=== PATIENT | male | born 1955 | race Caucasian/White ===

== ENCOUNTER 2018-10-23 10:47 | Inpatient (IN) | payer MEDICARE, OTHER ==
[2018-10-23] MEDS ORDERED: ASPIRIN 81 MG TABLET, CHEWABLE PO ONE (10:58)
[2018-10-23 11:13] LABS: ABSOLUTE BASOPHILS # (AUTO) 0.1 10^3/uL (0.0-0.2); ABSOLUTE EOSINOPHILS # (AUTO) 0.2 10^3/uL (0.0-0.6); ABSOLUTE LYMPHOCYTES (AUTO) 2.3 10^3/uL (0.5-4.7); ABSOLUTE MONOCYTES (AUTO) 1.6 10^3/uL (0.1-1.4); ABSOLUTE NEUT (AUTO) 7.1 10^3/uL (1.7-8.2); BASOPHILS % (AUTO) 0.8 % (0-2); EOSINOPHILS % (AUTO) 1.9 % (0-6); HEMATOCRIT 42.9 % (37.9-51.0); HEMOGLOBIN 14.8 g/dL (13.5-17.0); LYMPHOCYTES % (AUTO) 20.1 % (13-45); MEAN CORPUSCULAR HEMOGLOBIN 32.5 pg (27.0-33.4); MEAN CORPUSCULAR HGB CONC 34.6 g/dL (32.0-36.0); MEAN CORPUSCULAR VOLUME 94 fl (80-97); PLATELET COUNT 513 10^3/uL (150-450); RED BLOOD COUNT 4.57 10^6/uL (4.35-5.55); RED CELL DISTRIBUTION WIDTH 12.4 % (11.5-14.0); SEGMENTED NEUTROPHILS % (AUTO) 63.2 % (42-78); TOTAL CELLS COUNTED % (AUTO) 100 %; WHITE BLOOD COUNT 11.2 10^3/uL (4.0-10.5)
[2018-10-23] MEDS ORDERED: DILTIAZEM HCL/D5W 125 MG/125 ML RTUINJ IV PRN ×2 (11:20→18:29)
[2018-10-23 11:31] LABS: ALANINE AMINOTRANSFERASE 28 U/L (21-72); ALBUMIN 4.3 g/dL (3.5-5.0); ALKALINE PHOSPHATASE 59 U/L (38-126); ANION GAP 10 (5-19); ASPARTATE AMINO TRANSFERASE 19 U/L (17-59); BILIRUBIN,DIRECT 0.3 mg/dL (0.0-0.4); BILIRUBIN,TOTAL 0.5 mg/dL (0.2-1.3); BLOOD UREA NITROGEN 15 mg/dL (7-20); CALCIUM 9.6 mg/dL (8.4-10.2); CARBON DIOXIDE 26 mmol/L (22-30); CHLORIDE 102 mmol/L (98-107); CREATINE KINASE 53 U/L (55-170); GLUCOSE 117 mg/dL (75-110); POTASSIUM 4.7 mmol/L (3.6-5.0); SODIUM 137.7 mmol/L (137-145); TOTAL PROTEIN 7.1 g/dL (6.3-8.2)
--- NOTE | 2018-10-23 11:36 | RADIOLOGY REPORT (SQ) ---
EXAM DESCRIPTION: CHEST SINGLE VIEW COMPLETED DATE/TIME: 10/23/2018 11:24 am REASON FOR STUDY: HR over 170 COMPARISON: None. EXAM PARAMETERS: NUMBER OF VIEWS: One view. TECHNIQUE: Single frontal radiographic view of the chest acquired. RADIATION DOSE: NA LIMITATIONS: None. FINDINGS: LUNGS AND PLEURA: No opacities, masses or pneumothorax. No pleural effusion. MEDIASTINUM AND HILAR STRUCTURES: Widening of the right paratracheal stripe, likely vascular. No dis crete mass. HEART AND VASCULAR STRUCTURES: Normal cardiac silhouette size. No evidence of failure. BONES: No acute findings. HARDWARE: None in the chest. OTHER: Hiatal hernia. IMPRESSION: Hiatal hernia. No evidence of acute intrathoracic process. TECHNICAL DOCUMENTATION: JOB ID: [id number] [email or web address]- All Rights Reserved Reading location - IP/workstation name: [email or web address]
[2018-10-23 11:42] LABS: CREATINE KINASE MB 0.68 ng/mL (<4.55)
[2018-10-23 11:44] LABS: TROPONIN I < 0.012 ng/mL
--- NOTE | 2018-10-23 11:59 | ER Document Report ---
ED Cardiac - General Chief Complaint: Irregular Pulse Stated Complaint: HEART ISSUES Time Seen by Provider: 10/23/18 11:07 Primary Care Provider: NAYAN BELTRAN MD [Primary Care Provider] - Follow up as needed TRAVEL OUTSIDE OF THE [place] IN LAST 30 DAYS: No - HPI Notes: Patient is a 63-year-old male that presents to the emergency department for chief complaint of irregular heart rhythm. Patient was being seen by his primary care doctor for sinus congestion. He had just completed a course of Levaquin and was still having some sinus pressure. Patient was found to have a heart rate in the high 170s and was transferred by EMS to the emergency room. EMS gave patient 25 mg IV Cardizem and 6 mg IV adenosine prior to arrival. Patient denies feeling any chest pain, shortness of breath, palpitations. He denies history of atrial fib or flutter in the past. He denies any near syncope or lightheadedness. He does state he was sweating last night which resolved shortly after waking up. Past Medical History: Hypertension, hyperlipidemia, COPD Past Surgical History: Negative Social History: Daily tobacco. Denies drugs and alcohol Family History: Reviewed and noncontributory for presenting illness Allergies: Reviewed, see documented allergy list. REVIEW OF SYSTEMS: CONSTITUTIONAL : No fever No chills No diaphoresis No recent illness EENT: No vision changes congestion No sore throat CARDIOVASCULAR: No chest pain No palpitations RESPIRATORY: No shortness of breath No cough No difficulty breathing GASTROINTESTINAL: No abdominal pain No nausea No vomiting No diarrhea GENITOURINARY: No dysuria No hematuria No difficulty urinating MUSCULOSKELETAL: No back pain No leg pain No arm pain SKIN: No rashes No lesions LYMPHATIC: No swollen, enlarged glands. NEUROLOGICAL: No lightheadedness No headache No weakness No paresthesias PSYCHIATRIC: No anxiety No depression PHYSICAL EXAMINATION: Vital signs reviewed, nursing noted reviewed. GENERAL: Well-appearing, well-nourished and in no acute distress. HEAD: Atraumatic, normocephalic. EYES: Eyes appear normal, extraocular movements intact, sclera anicteric, con junctiva are normal. ENT: Nasal mucosal edema, nares patent, oropharynx clear without exudates. Mo ist mucous membranes. NECK: Normal range of motion, supple without lymphadenopathy LUNGS: Breath sounds clear to auscultation bilaterally and equal. No wheezes rales or rhonchi. HEART: Tachycardic and irregularly irregular rhythm without murmurs ABDOMEN: Soft, nontender, normoactive bowel sounds. No rebound, guarding, or rigidity. No masses appreciated. EXTREMITIES: Nontender, good range of motion, no pitting or edema. NEUROLOGICAL: No focal neurological deficits. Moves all extremities spontaneously Motor and sensory grossly intact on exam. PSYCH: Normal mood, normal affect. SKIN: Warm, Dry, normal turgor, no rashes or lesions noted on exposed skin - Related Data Allergies/Adverse Reactions: No Known Allergies Allergy (Verified 10/23/18 11:00) Past Medical History - Social History Smoking Status: Current Every Day Smoker Frequency of alcohol use: None Drug Abuse: None Family History: Reviewed & Not Pertinent Patient has suicidal ideation: No Patient has homicidal ideation: No - Past Medical History Cardiac Medical History: Reports: Hx Hypercholesterolemia, Hx Hypertension Pulmonary Medical History: Reports: Hx COPD Renal/ Medical History: Denies: Hx Peritoneal Dialysis Physical Exam - Vital signs Vitals: Pulse Ox 99 10/23/18 10:56 Course - Re-evaluation Re-evalutation: 10/23/18 12:06 Vitals reviewed. Nursing notes reviewed. Patient initially presented rate controlled in atrial flutter. His heart rate shortly became tachycardic again and he was placed on Cardizem infusion for further rate control. Patient is not having any chest pain and his troponin is negative. The remainder of his workup is unremarkable including no pulmonary vascular congestion. The atrial flutter is new for him and he is requiring IV infusion for rate control. He will be admitted to the hospital for further cardiac monitoring and evaluation. Patient in agreement with this plan. He is a patient of Dr. Ames and after talking to his office I am informed that he is no longer admitting his patients. Case discussed with Dr. Arias who accepts admission. Laboratory 10/23/18 10/23/18 10/23/18 10:56 10:56 10:56 WBC 11.2 H RBC 4.57 Hgb 14.8 Hct 42.9 MCV 94 MCH 32.5 MCHC 34.6 RDW 12.4 Plt Count 513 H Seg Neutrophils % 63.2 Lymphocytes % 20.1 Monocytes % 14.0 H Eosinophils % 1.9 Basophils % 0.8 Absolute Neutrophils 7.1 Absolute Lymphocytes 2.3 Absolute Monocytes 1.6 H Absolute Eosinophils 0.2 Absolute Basophils 0.1 Sodium 137.7 Potassium 4.7 Chloride 102 Carbon Dioxide 26 Anion Gap 10 BUN 15 Creatinine 0.97 Est GFR ( Amer) > 60 Est GFR (Non-Af Amer) > 60 Glucose 117 H Calcium 9.6 Total Bilirubin 0.5 Direct Bilirubin 0.3 Neonat Total Bilirubin Not Reportable Neonat Direct Bilirubin Not Reportable Neonat Indirect Bili Not Reportable AST 19 ALT 28 Alkaline Phosphatase 59 Creatine Kinase 53 L CK-MB (CK-2) 0.68 Troponin I < 0.012 Total Protein 7.1 Albumin 4.3 Chest X-Ray 10/23/18 10:58 IMPRESSION: Hiatal hernia. No evidence of acute intrathoracic process. - Vital Signs Vital signs: Temp Pulse Resp BP Pulse Ox 98.0 F 103 H 24 H 116/88 H 99 10/23/18 11:04 10/23/18 11:04 10/23/18 11:33 10/23/18 11:33 10/23/18 11:33 - Laboratory Result Diagrams: 10/23/18 10:56 10/23/18 10:56 Laboratory results interpreted by me: 10/23/18 10/23/18 10:56 10:56 WBC 11.2 H Plt Count 513 H Monocytes % 14.0 H Absolute Monocytes 1.6 H Glucose 117 H Creatine Kinase 53 L - EKG Interpretation by Me Additional EKG results interpreted by me: 10/23/18 12:07 Interpreted by myself 1053: Atrial fibrillation, rate 86, no STEMI, QTC 402 Critical Care Note - Critical Care Note Total time excluding time spent on procedures (mins): 35 Comments: 35 Minutes of critical care time spent in direct contact evaluating and reevaluating the patient, treating symptoms, reviewing labs and studies and speaking with family and consultants excluding any procedures. Potential for cardiovascular decompensation Discharge - Discharge Clinical Impression: Atrial flutter with rapid ventricular response Condition: Stable Disposition: ADMITTED INPATIENT Admitting Provider: Hospitalist Unit Admitted: IMCU Referrals: NAYAN BELTRAN MD [Primary Care Provider] - Follow up as needed
[2018-10-23] MEDS ORDERED: APIXABAN 5 MG TABLET PO ONE ×2 (12:35→13:30)
[2018-10-23 14:03] LABS: FREE T4 (FREE THYROXINE) 1.55 ng/dL (0.78-2.19)
[2018-10-23 14:55] LABS: THYROID STIMULATING HORMONE 1.93 uIU/mL (0.47-4.68)
--- NOTE | 2018-10-23 17:45 | PDOC H&P ---
History of Present Illness Admission Date/PCP: 10/23/18 12:25 LENKA STOKES History of Present Illness: ZEB RODRIGUEZ is a 63 year old male with no prior cardiac history, history of hypertension, hyperlipidemia, and smoking half a pack a day, who presented to an urgent care today due to sinus problems. Apparently he is got pretty bad allergies and has a lot of trouble with his sinuses and has been taking [id number] cold medication and has been using an inhaler he managed to get his hands on for the past week. He denied any palpitations, chest pain, or shortness of breath. He is not had any dizziness. He went to the urgent care for ongoing sinus trouble and when he got there apparently his heart rate was in the 170s and so he was sent to the ER. Someone gave him adenosine and it did not convert him and he got some Cardizem and was started on a drip this brought his heart rate down into the 110s to the 140s. He is never had an issue like this before. Past Medical History Cardiac Medical History: Reports: Hyperlipidema, Hypertension Pulmonary Medical History: Reports: Chronic Obstructive Pulmonary Disease (COPD) Social History Smoking Status: Current Every Day Smoker Family History Family History: Reviewed & Not Pertinent Parental Family History Reviewed: Yes - Noncontributory Children Family History Reviewed: Yes - Noncontributory Sibling(s) Family History Reviewed.: Yes - Noncontributory Medication/Allergy Home Medications: Albuterol Sulfate [Ventolin Hfa 8 gm Mdi (1 Mdi/ER Disp)] 2 puff IN Q6HP PRN 10/23/18 Aspirin [Aspirin 325 mg Tablet] 325 mg PO DAILY 10/23/18 Cholecalciferol (Vitamin D3) [Vitamin D3] 2,000 unit PO DAILY 10/23/18 Fenofibrate Nanocrystallized [Tricor 48 mg Tablet] 48 mg PO DAILY 10/23/18 Ibuprofen 200 mg PO TIDP PRN 10/23/18 Loratadine [Allergy Relief] 10 mg PO DAILY 10/23/18 Multivitamin [Multivitamins] 1 each PO DAILY 10/23/18 Simvastatin [Zocor 40 mg Tablet] 40 mg PO DAILY 10/23/18 Telmisartan/Hydrochlorothiazid [Telmisartan-Hctz 80-12.5 mg Tb] 1 tab PO DAILY 10/23/18 Allergies/Adverse Reactions: No Known Allergies Allergy (Verified 10/23/18 11:00) Review of Systems All systems: reviewed and no additional remarkable complaints except as stated - 10 point review of systems was conducted with the patient and was negative except as noted above Physical Exam Vital Signs: Temp Pulse Resp BP Pulse Ox 98.0 F 103 H 19 126/81 H 96 10/23/18 11:04 10/23/18 11:04 10/23/18 16:31 10/23/18 16:31 10/23/18 16:31 Intake & Output 10/22/18 10/23/18 10/24/18 06:59 06:59 06:59 Intake Total 53 Output Total 500 Balance -447 Weight 86.183 kg General appearance: PRESENT: no acute distress, cooperative Head exam: PRESENT: atraumatic, normocephalic Eye exam: PRESENT: EOMI, PERRLA. ABSENT: conjunctival injection, nystagmus, scleral icterus Ear exam: PRESENT: normal external ear exam Mouth exam: PRESENT: moist, neck supple Teeth exam: PRESENT: poor dentation Throat exam: ABSENT: post pharyngeal erythema Neck exam: PRESENT: full ROM. ABSENT: carotid bruit, JVD, lymphadenopathy, meningismus, tenderness, thyromegaly Respiratory exam: PRESENT: clear to auscultation maci, symmetrical, unlabored. ABSENT: accessory muscle use, chest wall tenderness, crackles, prolonged expiratory phas, rales, rhonchi, tachypnea, wheezes Cardiovascular exam: PRESENT: irregular rhythm, tachycardia Vascular exam: PRESENT: normal capillary refill GI/Abdominal exam: PRESENT: normal bowel sounds, soft. ABSENT: distended, guarding, rebound, tenderness Extremities exam: ABSENT: clubbing, pedal edema Musculoskeletal exam: PRESENT: ambulatory, normal inspection. ABSENT: deformity Neurological exam: PRESENT: alert, awake, oriented to person, oriented to place, oriented to time, oriented to situation, CN II-XII grossly intact, normal gait. ABSENT: motor sensory deficit Psychiatric exam: PRESENT: appropriate affect, normal mood Skin exam: PRESENT: dry, warm Results Laboratory Results: 10/23/18 10:56 10/23/18 10:56 10/23/18 10/23/18 10/23/18 10:56 10:56 10:56 WBC 11.2 H RBC 4.57 Hgb 14.8 Hct 42.9 MCV 94 MCH 32.5 MCHC 34.6 RDW 12.4 Plt Count 513 H Seg Neutrophils % 63.2 Lymphocytes % 20.1 Monocytes % 14.0 H Eosinophils % 1.9 Basophils % 0.8 Absolute Neutrophils 7.1 Absolute Lymphocytes 2.3 Absolute Monocytes 1.6 H Absolute Eosinophils 0.2 Absolute Basophils 0.1 Sodium 137.7 Potassium 4.7 Chloride 102 Carbon Dioxide 26 Anion Gap 10 BUN 15 Creatinine 0.97 Est GFR ( Amer) > 60 Est GFR (Non-Af Amer) > 60 Glucose 117 H Calcium 9.6 Total Bilirubin 0.5 AST 19 ALT 28 Alkaline Phosphatase 59 Total Protein 7.1 Albumin 4.3 TSH 1.93 Free T4 1.55 10/23/18 10/23/18 10/23/18 10:56 10:56 15:01 Creatine Kinase 53 L CK-MB (CK-2) 0.68 Troponin I < 0.012 < 0.012 Impressions: Chest X-Ray 10/23/18 10:58 IMPRESSION: Hiatal hernia. No evidence of acute intrathoracic process. Assessment & Plan - Diagnosis (1) Atrial flutter with rapid ventricular response Is this a current diagnosis for this admission?: Yes Plan: He is been started on a Cardizem drip. Once we get his heart rate under control we will transition to oral agents and start anticoagulation. We will trend his troponins. We will likely get a cardiac workup as well. - Time Time Spent: 50 to 70 Minutes
[2018-10-23] MEDS: APIXABAN 5 MG TABLET PO SCH (18:21)
[2018-10-23] MEDS ORDERED: DILTIAZEM HCL/D5W 125 MG/125 ML RTUINJ IV ONE (22:53)
[2018-10-24 03:48] LABS: HEMATOCRIT 40.4 % (37.9-51.0); HEMOGLOBIN 14.3 g/dL (13.5-17.0); MEAN CORPUSCULAR HEMOGLOBIN 32.7 pg (27.0-33.4); MEAN CORPUSCULAR HGB CONC 35.4 g/dL (32.0-36.0); MEAN CORPUSCULAR VOLUME 92 fl (80-97); PLATELET COUNT 507 10^3/uL (150-450); RED BLOOD COUNT 4.38 10^6/uL (4.35-5.55); RED CELL DISTRIBUTION WIDTH 12.2 % (11.5-14.0); WHITE BLOOD COUNT 13.6 10^3/uL (4.0-10.5)
[2018-10-24 04:13] LABS: ANION GAP 10 (5-19); BLOOD UREA NITROGEN 11 mg/dL (7-20); CALCIUM 9.1 mg/dL (8.4-10.2); CARBON DIOXIDE 24 mmol/L (22-30); CHLORIDE 102 mmol/L (98-107); CHOLESTEROL 122.53 mg/dL (0-200); GLUCOSE 115 mg/dL (75-110); PHOSPHORUS 4.4 mg/dL (2.5-4.5); SODIUM 135.7 mmol/L (137-145); TRIGLYCERIDES 134 mg/dL (<150)
[2018-10-24 04:26] LABS: DIRECT LDL 87 mg/dL (<100)
--- NOTE | 2018-10-24 08:02 | EKG REPORT ---
SEVERITY:- NORMAL ECG - SINUS RHYTHM : Confirmed by: Moriah Cuellar MD 24-Oct-2018 08:01:10
--- NOTE | 2018-10-24 08:02 | EKG REPORT ---
SEVERITY:- NORMAL ECG - SINUS RHYTHM : Confirmed by: Moriah Cuellar MD 24-Oct-2018 08:01:06
--- NOTE | 2018-10-24 08:03 | EKG REPORT ---
SEVERITY:- DEFECTIVE ECG - ATRIAL FIBRILLATION PROBABLY VERSUS ARTIFACT VENTRICULAR BIGEMINY LAD, CONSIDER LEFT ANTERIOR FASCICULAR BLOCK CONSIDER POSTERIOR INFARCT BORDERLINE T ABNORMALITIES, INFERIOR LEADS : Confirmed by: Moriah Cuellar MD 24-Oct-2018 08:03:06
[2018-10-24] MEDS: ASPIRIN 325 MG TABLET PO SCH (09:58)
[2018-10-24] MEDS: SIMVASTATIN 40 MG TABLET PO SCH (09:58)
[2018-10-24] MEDS: FENOFIBRATE NANOCRYSTALLIZED 48 MG TABLET PO SCH (09:58)
[2018-10-24] MEDS: MULTIVITAMIN TABLET PO SCH (09:59)
[2018-10-24] MEDS: LOSARTAN POTASSIUM 50 MG TABLET PO SCH (10:00)
[2018-10-24] MEDS: APIXABAN 5 MG TABLET PO SCH ×2 (10:00→17:36)
[2018-10-24] MEDS ORDERED: (PENDING PHARMACY ID) (Telmisartan/Hydrochlorothiazid [Telmisartan-Hctz 80-12.5 Mg Tb] 1 T PO SCH (10:00)
[2018-10-24] MEDS: HYDROCHLOROTHIAZIDE 12.5 MG TABLET PO SCH (10:00)
[2018-10-24] MEDS ORDERED: DILTIAZEM HCL 180 MG CAPSULE.CR PO ONE (11:30)
--- NOTE | 2018-10-24 15:56 | PDOC PROGRESS REPORT ---
Subjective Progress Note for:: 10/24/18 Subjective:: No adverse events overnight. No new complaints. No palpitations, chest pain, or shortness of breath. He converted to a sinus rhythm at some point overnight. Reason For Visit: ATRIAL FLUTTER WITH RAPID VENTRICULAR RESPONSE Physical Exam Vital Signs: Temp Pulse Resp BP Pulse Ox 98.4 F 71 16 95/49 L 94 10/24/18 10:58 10/24/18 13:00 10/24/18 10:58 10/24/18 13:00 10/24/18 10:58 Intake & Output 10/23/18 10/24/18 10/25/18 06:59 06:59 06:59 Intake Total 125 125 Output Total 500 Balance -375 125 Weight 85.9 kg General appearance: PRESENT: no acute distress, cooperative, disheveled Respiratory exam: PRESENT: clear to auscultation maci, symmetrical, unlabored. ABSENT: accessory muscle use, crackles, prolonged expiratory phas, rhonchi, tachypnea, wheezes Cardiovascular exam: PRESENT: RRR, +S1, +S2 Pulses: PRESENT: normal carotid pulses Vascular exam: PRESENT: normal capillary refill GI/Abdominal exam: PRESENT: normal bowel sounds, soft. ABSENT: distended, guarding, rebound, tenderness Extremities exam: ABSENT: clubbing, pedal edema Musculoskeletal exam: PRESENT: ambulatory, normal inspection. ABSENT: deformity Neurological exam: PRESENT: alert, awake, oriented to person, oriented to place, oriented to time, oriented to situation Psychiatric exam: PRESENT: appropriate affect, normal mood Skin exam: PRESENT: dry, warm Results Laboratory Results: 10/24/18 03:12 10/24/18 03:12 10/24/18 10/24/18 03:12 03:12 WBC 13.6 H RBC 4.38 Hgb 14.3 Hct 40.4 MCV 92 MCH 32.7 MCHC 35.4 RDW 12.2 Plt Count 507 H Sodium 135.7 L Potassium 5.0 Chloride 102 Carbon Dioxide 24 Anion Gap 10 BUN 11 Creatinine 0.78 Est GFR ( Amer) > 60 Est GFR (Non-Af Amer) > 60 Glucose 115 H Calcium 9.1 Phosphorus 4.4 Magnesium 1.9 Triglycerides 134 Cholesterol 122.53 LDL Cholesterol Direct 87 VLDL Cholesterol 27.0 HDL Cholesterol 24 L 10/23/18 10/23/18 10/23/18 10:56 10:56 15:01 Creatine Kinase 53 L CK-MB (CK-2) 0.68 Troponin I < 0.012 < 0.012 10/23/18 10/24/18 21:14 03:12 Creatine Kinase CK-MB (CK-2) Troponin I < 0.012 < 0.012 Impressions: Chest X-Ray 10/23/18 10:58 IMPRESSION: Hiatal hernia. No evidence of acute intrathoracic process. Assessment & Plan - Diagnosis (1) Atrial flutter with rapid ventricular response Is this a current diagnosis for this admission?: Yes Plan: He is now converted to a sinus rhythm. He is anticoagulated. We will switch him over to oral Cardizem. His troponins have been negative. We will probably have him follow-up with cardiology as an outpatient to see if further workup is indicated. - Time Time Spent with patient: 25-34 minutes
--- NOTE | 2018-10-24 22:33 | XCELERA REPORT ---
[address] [address] Transthoracic Echocardiogram Report Name: ZEB RODRIGUEZ Age: 63 yrs Gender: Male : 1955 Patient Status: Inpatient Patient Location: [address] [place], [place] [id number] Study Date: 10/24/2018 03:40 PM Height: 67 in Weight: 189 lb BSA: 2.0 m2 Procedure: A two-dimensional transthoracic echocardiogram with color flow and Doppler was performed. Study Quality: Fair. Reason For Study: new onset atrial fibrillation History: new onset atrial fibrillation. Ordering Physician: HAMZAH WEI Performed By: Rubin Mccain Interpretation Summary Patient now in Sinus Rhythm. The left ventricle is normal in size. There is normal left ventricular wall thickness. LV EF is > than 60% Left ventricular systolic function is normal. Doppler measurements suggest impaired left ventricular relaxation, which is associated with grade I/IV or mild diastolic dysfunction The left ventricular wall motion is normal. There is no thrombus. The right ventricle is normal in size and function. The right atrium is normal. The left atrium is mildly dilated. There is no evidence of mitral valve prolapse. There is no vegetation seen on the mitral valve. There is mild mitral annular calcification. There is no mitral valve stenosis. There is a trace amount of mitral regurgitation There is no aortic valvular vegetation. There is no aortic valve stenosis There is no LVOT obstruction. No aortic regurgitation is present. There is no tricuspid stenosis. There is a trace to mild amount of tricuspid regurgitation There is mild pulmonary hypertension by echo RVSP is 41 mm of Hg , with RA mean of 10. There is no pulmonic valvular stenosis. There is a trace amount of pulmonic regurgitation The aortic root is normal size. The inferior vena cava was not visualized There is no pericardial effusion. Patient now in Sinus Rhythm. MMode/2D Measurements & Calculations RVDd: 3.8 cm LVIDd: 4.1 cm FS: 33.4 % LA dimension: 4.3 cm IVSd: 0.89 cm LVIDs: 2.7 cm EDV(Teich): 72.6 ml LVPWd: 0.95 cm ESV(Teich): 27.1 ml EF(Teich): 62.7 % Doppler Measurements & Calculations MV E max arley: MV P1/2t max arley: Ao V2 max: LV V1 max P.0 cm/sec 104.2 cm/sec 179.2 cm/sec 5.8 mmHg MV A max arley: MV P1/2t: 98.0 msec Ao max PG: LV V1 max: 77.0 cm/sec MVA(P1/2t): 2.2 cm2 12.8 mmHg 120.9 cm/sec MV E/A: 0.96 MV dec slope: 311.6 cm/sec2 MV dec time: 0.19 sec PA V2 max: PI end-d arley: TR max arley: MV P1/2t-pr_phl: 111.1 cm/sec 115.4 cm/sec 279.6 cm/sec 98.0 msec PA max PG: TR max P.9 mmHg 31.3 mmHg Left Ventricle The left ventricle is normal in size. There is normal left ventricular wall thickness. LV EF is > than 60%. Left ventricular systolic function is normal. Doppler measurements suggest impaired left ventricular relaxation, which is associated with grade I/IV or mild diastolic dysfunction. The left ventricular wall motion is normal. There is no thrombus. Right Ventricle The right ventricle is normal in size and function. Atria The right atrium is normal. The left atrium is mildly dilated. Mitral Valve There is mild mitral annular calcification. There is no evidence of mitral valve prolapse. There is no vegetation seen on the mitral valve. There is no mitral valve stenosis. There is a trace amount of mitral regurgitation. Aortic Valve There is no aortic valvular vegetation. There is no aortic valve stenosis. There is no LVOT obstruction. No aortic regurgitation is present. Tricuspid Valve There is no tricuspid stenosis. There is a trace to mild amount of tricuspid regurgitation. There is mild pulmonary hypertension by echo. RVSP is 41 mm of Hg , with RA mean of 10. Pulmonic Valve There is no pulmonic valvular stenosis. There is a trace amount of pulmonic regurgitation. Great Vessels The aortic root is normal size. The inferior vena cava was not visualized. Effusions There is no pericardial effusion. : HAMZAH WEI > Moriah Cuellar
[2018-10-25 05:20] LABS: HEMATOCRIT 39.8 % (37.9-51.0); HEMOGLOBIN 13.8 g/dL (13.5-17.0); MEAN CORPUSCULAR HEMOGLOBIN 32.3 pg (27.0-33.4); MEAN CORPUSCULAR HGB CONC 34.8 g/dL (32.0-36.0); MEAN CORPUSCULAR VOLUME 93 fl (80-97); PLATELET COUNT 456 10^3/uL (150-450); RED BLOOD COUNT 4.28 10^6/uL (4.35-5.55); RED CELL DISTRIBUTION WIDTH 12.5 % (11.5-14.0); WHITE BLOOD COUNT 12.8 10^3/uL (4.0-10.5)
[2018-10-25 05:42] LABS: ANION GAP 9 (5-19); BLOOD UREA NITROGEN 15 mg/dL (7-20); CARBON DIOXIDE 24 mmol/L (22-30); CHLORIDE 101 mmol/L (98-107); GLUCOSE 102 mg/dL (75-110); POTASSIUM 4.6 mmol/L (3.6-5.0); SODIUM 134.1 mmol/L (137-145)
[2018-10-25] MEDS: LOSARTAN POTASSIUM 50 MG TABLET PO SCH (09:18)
[2018-10-25] MEDS: ASPIRIN 325 MG TABLET PO SCH (09:18)
[2018-10-25] MEDS: HYDROCHLOROTHIAZIDE 12.5 MG TABLET PO SCH (09:18)
[2018-10-25] MEDS: SIMVASTATIN 40 MG TABLET PO SCH (09:18)
[2018-10-25] MEDS: FENOFIBRATE NANOCRYSTALLIZED 48 MG TABLET PO SCH (09:19)
[2018-10-25] MEDS: APIXABAN 5 MG TABLET PO SCH (09:19)
[2018-10-25] MEDS: MULTIVITAMIN TABLET PO SCH (09:19)
[2018-10-25] MEDS ORDERED: DILTIAZEM HCL 180 MG CAPSULE.CR PO SCH (10:00)
[2018-10-25] MEDS ORDERED: CEPHALEXIN 500 MG CAPSULE PO SCH (12:00)
[2018-10-25 13:02] VITALS: BP 118/41
--- NOTE | 2018-10-25 16:30 | PDOC DISCHARGE SUMMARY ---
General - Admit/Disc Date/PCP Admission Date/Primary Care Provider: 10/23/18 12:25 LENKA STOKES Discharge Date: 10/25/18 - Discharge Diagnosis (1) Atrial flutter with rapid ventricular response Is this a current diagnosis for this admission?: Yes Summary: He did pretty well on a Cardizem drip and we switched him over to p.o. Cardizem he converted to sinus rhythm. He is being sent home on p.o. Cardizem and anticoagulation. He will follow-up with cardiology as an outpatient. - Additional Information Discharge Diet: Cardiac Discharge Activity: Activity As Tolerated, Balance Activity w/Rest Prescriptions: Apixaban [Eliquis 5 mg Tablet] 5 mg PO BID #60 tablet Cephalexin [Cephalexin 500 MG Tablet] 1 tab PO QID #40 tablet Diltiazem HCl [Cardizem Cd 180 mg Capsule] 180 mg PO DAILY #30 capsule.cr Home Medications: Albuterol Sulfate [Ventolin Hfa 8 gm Mdi (1 Mdi/ER Disp)] 2 puff IN Q6HP PRN 10/23/18 Cholecalciferol (Vitamin D3) [Vitamin D3] 2,000 unit PO DAILY 10/23/18 Fenofibrate Nanocrystallized [Tricor 48 mg Tablet] 48 mg PO DAILY 10/23/18 Ibuprofen 200 mg PO TIDP PRN 10/23/18 Loratadine [Allergy Relief] 10 mg PO DAILY 10/23/18 Multivitamin [Multivitamins] 1 each PO DAILY 10/23/18 Telmisartan/Hydrochlorothiazid [Telmisartan-Hctz 80-12.5 mg Tb] 1 tab PO DAILY 10/23/18 Apixaban [Eliquis 5 mg Tablet] 5 mg PO BID #60 tablet 10/25/18 Cephalexin [Cephalexin 500 MG Tablet] 1 tab PO QID #40 tablet 10/25/18 Diltiazem HCl [Cardizem Cd 180 mg Capsule] 180 mg PO DAILY #30 capsule.cr 10/25/18 Simvastatin [Zocor 40 mg Tablet] 20 mg PO DAILY #0 10/25/18 History of Present Illness History of Present Illness: ZEB RODRIGUEZ is a 63 year old male with no prior cardiac history, history of hypertension, hyperlipidemia, and smoking half a pack a day, who presented to an urgent care today due to sinus problems. Apparently he is got pretty bad allergies and has a lot of trouble with his sinuses and has been taking [id number] cold medication and has been using an inhaler he managed to get his hands on for the past week. He denied any palpitations, chest pain, or shortness of breath. He is not had any dizziness. He went to the urgent care for ongoing sinus trouble and when he got there apparently his heart rate was in the 170s and so he was sent to the ER. Someone gave him adenosine and it did not convert him and he got some Cardizem and was started on a drip this brought his heart rate down into the 110s to the 140s. He is never had an issue like this before. Hospital Course Hospital Course: Responded quickly to a Cardizem drip and was able to transition over to oral Cardizem, and then he subsequently converted to a sinus rhythm. He is being put on anticoagulation we will follow-up with cardiology in a few weeks. We ran troponins on him but they were negative. He never had any chest pain. He is not had a stress test and will probably get 1 of those when he follows up audiology. His labs and examination were reassuring hers in good condition. Also of note, he had a pimple on his upper lip that he tried to pop in his lipid gotten swollen and so I started him on some Keflex. Physical Exam Vital Signs: Temp Pulse Resp BP Pulse Ox 98.9 F 71 16 118/41 L 93 10/25/18 12:58 10/25/18 12:58 10/25/18 12:58 10/25/18 12:58 10/25/18 12:58 Intake & Output 10/24/18 10/25/18 10/26/18 06:59 06:59 06:59 Intake Total 125 1502 Output Total 500 Balance -375 1502 Weight 85.9 kg 84.5 kg General appearance: PRESENT: no acute distress, cooperative, disheveled Respiratory exam: PRESENT: clear to auscultation maci, symmetrical, unlabored. ABSENT: accessory muscle use, crackles, prolonged expiratory phas, rhonchi, tachypnea, wheezes Cardiovascular exam: PRESENT: RRR, +S1, +S2 Pulses: PRESENT: normal carotid pulses Vascular exam: PRESENT: normal capillary refill GI/Abdominal exam: PRESENT: normal bowel sounds, soft. ABSENT: distended, guarding, rebound, tenderness Extremities exam: ABSENT: clubbing, pedal edema Musculoskeletal exam: PRESENT: ambulatory, normal inspection. ABSENT: deformity Neurological exam: PRESENT: alert, awake, oriented to person, oriented to place, oriented to time, oriented to situation Psychiatric exam: PRESENT: appropriate affect, normal mood Skin exam: PRESENT: dry, warm Results Laboratory Results: 10/25/18 04:16 10/25/18 04:16 10/25/18 10/25/18 04:16 04:16 WBC 12.8 H RBC 4.28 L Hgb 13.8 Hct 39.8 MCV 93 MCH 32.3 MCHC 34.8 RDW 12.5 Plt Count 456 H Sodium 134.1 L Potassium 4.6 Chloride 101 Carbon Dioxide 24 Anion Gap 9 BUN 15 Creatinine 0.73 Est GFR ( Amer) > 60 Est GFR (Non-Af Amer) > 60 Glucose 102 Calcium 9.0 10/23/18 10/23/18 10/23/18 10:56 10:56 15:01 Creatine Kinase 53 L CK-MB (CK-2) 0.68 Troponin I < 0.012 < 0.012 10/23/18 10/24/18 21:14 03:12 Creatine Kinase CK-MB (CK-2) Troponin I < 0.012 < 0.012 Impressions: Chest X-Ray 10/23/18 10:58 IMPRESSION: Hiatal hernia. No evidence of acute intrathoracic process. Qualifiers - * PATIENT BEING DISCHARGED WITH ANY OF THE FOLLOWING DIAGNOSIS: No
== END 2018-10-25 13:50 | disposition home or self-care (01) | DRG 310 ==
LOC: ER 10:47 → EH 12:25 → 3N 20:57
PROVIDERS: ADMIT Internal Medicine; ATTEND Internal Medicine
DX: I48.92 Unspecified atrial flutter (principal); J44.9 Chronic obstructive pulmonary disease, unspecified; E78.5 Hyperlipidemia, unspecified; I10 Essential (primary) hypertension; F17.200 Nicotine dependence, unspecified, uncomplicated; Z91.09 Other allergy status, other than to drugs and biological substances; Z79.82 Long term (current) use of aspirin
CPT/HCPCS: 36415; 71045; 80048; 80053; 80061; 82550; 82553; 83036; 83735; 84100; 84439; 84443; 84484; 85025; 85027; 93005; 93010; 93306; 99291; J3490

== ENCOUNTER 2019-05-20 09:58 | Emergency (ER) | payer MEDICARE, OTHER ==
[2019-05-20] MEDS ORDERED: DILTIAZEM HCL INJ 25 MG/5 ML VIAL IV ONE ×2 (10:29→11:00)
[2019-05-20] MEDS ORDERED: DILTIAZEM HCL/D5W 125 MG/125 ML RTUINJ IV PRN (10:29)
[2019-05-20] MEDS ORDERED: DILTIAZEM HCL INJ 25 MG/5 ML VIAL ONE ×2 (10:31→11:00)
--- NOTE | 2019-05-20 10:35 | ER Document Report ---
ED General - General Chief Complaint: Arrhythmia Stated Complaint: ABNORMAL HEART RATE Time Seen by Provider: 05/20/19 10:08 Primary Care Provider: FRANCES LARSON MD [ACTIVE STAFF] - Follow up as needed TRAVEL OUTSIDE OF THE [place] IN LAST 30 DAYS: No - HPI Notes: Patient is a 64-year-old male who presents to the emergency department for evaluation of elevated heart rate. He had absolutely no associated symptoms with this. He actually presented to a information assurance manager office, he was getting evaluated for potential colonoscopy. They checked his vital signs and found his heart rate to be in the 150 range. Again the patient has no symptoms at this whatsoever. He denies any chest pain or difficulty breathing. No nausea. Has been eating and drinking normally. Taking his medications as prescribed. He does have history of atrial fibrillation, is on diltiazem, took this morning. Patient does note that he has been sweating a lot, but attributes that to the fact that his air conditioning went out 4 days ago. - Related Data Allergies/Adverse Reactions: tree and shrub pollen Allergy (Verified 10/24/18 01:24) Home Medications: Eliquis, diltiazem, cholesterol medication of some sort, vitamin D3 Past Medical History - General Information source: Patient - Social History Smoking Status: Former Smoker Family History: Reviewed & Not Pertinent - Past Medical History Cardiac Medical History: Reports: Hx Atrial Fibrillation, Hx H ypercholesterolemia, Hx Hypertension Pulmonary Medical History: Reports: Hx COPD Renal/ Medical History: Denies: Hx Peritoneal Dialysis Review of Systems - Review of Systems Constitutional: No symptoms reported EENT: No symptoms reported Cardiovascular: See HPI Respiratory: No symptoms reported Gastrointestinal: No symptoms reported Genitourinary: No symptoms reported Musculoskeletal: No symptoms reported Skin: No symptoms reported Neurological/Psychological: No symptoms reported Physical Exam - Vital signs Vitals: Temp Pulse Resp BP Pulse Ox 97.7 F 156 H 17 132/65 H 100 05/20/19 10:01 05/20/19 10:01 05/20/19 10:01 05/20/19 10:01 05/20/19 10:01 - Notes Notes: Vital signs reviewed, please refer to chart. Head is normocephalic, atraumatic. Pupils equal round, reactive to light. Neck is supple without meningismus. Heart is tachycardic but regular, with normal S1-S2. Lungs are clear to auscultation bilaterally. Abdomen is soft, nontender, normoactive bowel sounds throughout. Extremities without cyanosis, clubbing. Posterior calves are nontender. Peripheral pulses are equal. Skin is warm and dry. Patient is awake, alert, neurological exam is nonfocal. Course - Re-evaluation Re-evalutation: 05/20/19 12:27 Patient presented to the emergency department for evaluation. He was in rapid atrial flutter upon arrival. He was given Cardizem and placed on a drip. The patient's heart rate did not respond to initial bolus of second bolus was placed. Patient's heart rate has been between 70 and 100 since the second bolus. He again remains asymptomatic. Laboratory investigations are unremarkable. Awaiting phone call from Dr. Cuellar in regards to appropriate medical management. 05/20/19 13:44 Patient responded to Cardizem second bolus. Drip was weaned down to 5 mg an hour. His heart was in the 70s and 80s. His blood pressure remained stable. I eventually was able to contact Dr. Cuellar. He asked that the patient start on Cardizem 180 twice a day, and follow-up with him in the office tomorrow. Patient was amenable to this plan. He had absolutely no symptoms during the entire course of his stay and was discharged. - Vital Signs Vital signs: Temp Pulse Resp BP Pulse Ox 97.7 F 156 H 18 108/68 94 05/20/19 10:01 05/20/19 10:01 05/20/19 13:01 05/20/19 13:01 05/20/19 13:01 - Laboratory Result Diagrams: 05/20/19 10:15 05/20/19 10:15 Laboratory results interpreted by me: 05/20/19 05/20/19 05/20/19 10:15 10:15 10:15 Monocytes % 13.5 H Eosinophils % 6.5 H PT 16.2 H Glucose 114 H Calcium 10.4 H - Diagnostic Test Radiology reviewed: Reports reviewed - EKG Interpretation by Me Additional EKG results interpreted by me: 05/20/19 10:34 Atrial flutter with a rate of 154 bpm. Normal axis and intervals. ST depression near globally consistent with rate related ischemia. This is a significant change in compared to prior study. Critical Care Note - Critical Care Note Total time excluding time spent on procedures (mins): 20 Discharge - Discharge Clinical Impression: Atrial flutter with rapid ventricular response Condition: Stable Disposition: HOME, SELF-CARE Instructions: Atrial Fibrillation ([facility]) Additional Instructions: Increase your Cardizem to 100 mg twice daily. Follow-up with Dr. Cuellar tomorrow. If you develop chest pain, difficulty breathing, or any other new or concerning symptoms, return immediately to the emergency department for reevaluation. Prescriptions: Diltiazem HCl [Cardizem Cd 180 mg Capsule] 180 mg PO BID #60 capsule.cr Referrals: FRANCES LARSON MD [ACTIVE STAFF] - Follow up as needed
[2019-05-20 10:44] LABS: ABSOLUTE BASOPHILS # (AUTO) 0.1 10^3/uL (0.0-0.2); ABSOLUTE EOSINOPHILS # (AUTO) 0.5 10^3/uL (0.0-0.6); ABSOLUTE LYMPHOCYTES (AUTO) 2.1 10^3/uL (0.5-4.7); ABSOLUTE NEUT (AUTO) 3.7 10^3/uL (1.7-8.2); BASOPHILS % (AUTO) 1.1 % (0-2); EOSINOPHILS % (AUTO) 6.5 % (0-6); HEMATOCRIT 44.4 % (37.9-51.0); HEMOGLOBIN 15.1 g/dL (13.5-17.0); LYMPHOCYTES % (AUTO) 28.8 % (13-45); MEAN CORPUSCULAR HEMOGLOBIN 31.4 pg (27.0-33.4); MEAN CORPUSCULAR HGB CONC 34.1 g/dL (32.0-36.0); MEAN CORPUSCULAR VOLUME 92 fl (80-97); MONOCYTES % (AUTO) 13.5 % (3-13); PLATELET COUNT 386 10^3/uL (150-450); RED BLOOD COUNT 4.82 10^6/uL (4.35-5.55); RED CELL DISTRIBUTION WIDTH 13.3 % (11.5-14.0); SEGMENTED NEUTROPHILS % (AUTO) 50.1 % (42-78); TOTAL CELLS COUNTED % (AUTO) 100 %; WHITE BLOOD COUNT 7.4 10^3/uL (4.0-10.5)
[2019-05-20 10:52] LABS: ALBUMIN 4.7 g/dL (3.5-5.0); ALKALINE PHOSPHATASE 49 U/L (38-126); ANION GAP 13 (5-19); ASPARTATE AMINO TRANSFERASE 35 U/L (17-59); BILIRUBIN,DIRECT 0.3 mg/dL (0.0-0.4); BILIRUBIN,TOTAL 0.7 mg/dL (0.2-1.3); BLOOD UREA NITROGEN 16 mg/dL (7-20); CALCIUM 10.4 mg/dL (8.4-10.2); CARBON DIOXIDE 26 mmol/L (22-30); CHLORIDE 102 mmol/L (98-107); CREATINE KINASE 58 U/L (55-170); GLUCOSE 114 mg/dL (75-110); POTASSIUM 4.4 mmol/L (3.6-5.0); TOTAL PROTEIN 7.7 g/dL (6.3-8.2)
[2019-05-20 10:55] LABS: INTERNATIONAL RATION (INR) 1.29; PROTHROMBIN TIME 16.2 SEC (11.4-15.4)
--- NOTE | 2019-05-20 11:00 | RADIOLOGY REPORT (SQ) ---
EXAM DESCRIPTION: CHEST SINGLE VIEW COMPLETED DATE/TIME: 05/20/2019 10:49 am REASON FOR STUDY: atrial flutter COMPARISON: 10/23/2018 NUMBER OF VIEWS: One view. TECHNIQUE: Single frontal radiographic view of the chest acquired. LIMITATIONS: None. FINDINGS: LUNGS AND PLEURA: No opacities, masses or pneumothorax. No pleural effusion. MEDIASTINUM AND HILAR STRUCTURES: No masses. Contour normal. HEART AND VASCULAR STRUCTURES: Heart normal in size. Normal vasculature. BONES: No acute findings. HARDWARE: None in the chest. OTHER: No other significant finding. IMPRESSION: NO SIGNIFICANT RADIOGRAPHIC FINDING IN THE CHEST. TECHNICAL DOCUMENTATION: JOB ID: [id number] [employer]- All Rights Reserved Reading location - IP/workstation name: [email or web address]
[2019-05-20 11:02] LABS: CREATINE KINASE MB 0.72 ng/mL (<4.55)
[2019-05-20 11:03] LABS: TROPONIN I < 0.012 ng/mL
[2019-05-20 14:18] VITALS: BP 130/60
--- NOTE | 2019-05-20 19:58 | EKG REPORT ---
SEVERITY:- ABNORMAL ECG - ATRIAL FLUTTER WITH 2:[address] DEPRESSION, PROBABLY RATE RELATED : Confirmed by: Moriah Cuellar MD 20-May-2019 19:57:26
--- NOTE | 2019-05-20 19:58 | EKG REPORT ---
SEVERITY:- ABNORMAL ECG - ATRIAL FLUTTER, A-RATE [address] DEPRESSION, DIFFUSE LEADS : Confirmed by: Moriah Cuellar MD 20-May-2019 19:56:50
== END 2019-05-20 14:20 | disposition home or self-care (01) ==
LOC: ER 09:58
DX: I48.92 Unspecified atrial flutter (principal); R61 Generalized hyperhidrosis; R00.0 Tachycardia, unspecified; J44.9 Chronic obstructive pulmonary disease, unspecified; I10 Essential (primary) hypertension; E78.00 Pure hypercholesterolemia, unspecified; I48.91 Unspecified atrial fibrillation; Z79.899 Other long term (current) drug therapy; Z79.02 Long term (current) use of antithrombotics/antiplatelets; Z87.891 Personal history of nicotine dependence
CPT/HCPCS: 93005 ×2; 36415; 82553; 82550; 84443; 85025; 85610; 80053; 84484; 71045; 93010; J3490 ×2; 96365; 96366; 96376; 99285

== ENCOUNTER 2019-08-02 08:47 | Inpatient (IN) | payer MEDICARE, OTHER ==
[2019-08-02 10:39] LABS: ABSOLUTE BASOPHILS # (AUTO) 0.1 10^3/uL (0.0-0.2); ABSOLUTE EOSINOPHILS # (AUTO) 0.4 10^3/uL (0.0-0.6); ABSOLUTE LYMPHOCYTES (AUTO) 1.7 10^3/uL (0.5-4.7); ABSOLUTE MONOCYTES (AUTO) 0.7 10^3/uL (0.1-1.4); ABSOLUTE NEUT (AUTO) 4.7 10^3/uL (1.7-8.2); BASOPHILS % (AUTO) 1.3 % (0-2); EOSINOPHILS % (AUTO) 5.4 % (0-6); HEMATOCRIT 40.1 % (37.9-51.0); HEMOGLOBIN 13.6 g/dL (13.5-17.0); LYMPHOCYTES % (AUTO) 22.1 % (13-45); MEAN CORPUSCULAR HEMOGLOBIN 31.5 pg (27.0-33.4); MEAN CORPUSCULAR VOLUME 93 fl (80-97); MONOCYTES % (AUTO) 9.6 % (3-13); PLATELET COUNT 311 10^3/uL (150-450); RED BLOOD COUNT 4.33 10^6/uL (4.35-5.55); RED CELL DISTRIBUTION WIDTH 12.8 % (11.5-14.0); SEGMENTED NEUTROPHILS % (AUTO) 61.6 % (42-78); TOTAL CELLS COUNTED % (AUTO) 100 %; WHITE BLOOD COUNT 7.6 10^3/uL (4.0-10.5)
[2019-08-02] MEDS ORDERED: SOTALOL HCL 80 MG TABLET PO ONE (10:45)
[2019-08-02 10:59] LABS: ANION GAP 13 (5-19); BLOOD UREA NITROGEN 15 mg/dL (7-20); CALCIUM 9.7 mg/dL (8.4-10.2); CARBON DIOXIDE 24 mmol/L (22-30); CHLORIDE 104 mmol/L (98-107); GLUCOSE 109 mg/dL (75-110); POTASSIUM 4.1 mmol/L (3.6-5.0)
--- NOTE | 2019-08-02 14:25 | PDOC H&P ---
History of Present Illness Admission Date/PCP: 08/02/19 08:47 LENKA STOKES Patient complains of: Patient admitted electively for chemical/electrical cardioversion of the patient's atrial flutter/fibrillation. Apart from awareness of irregular heartbeat the patient has no other symptoms. History of Present Illness: ZEB RODRIGUEZ is a 64 year old male Patient is a 64-year-old male with known history of with a history of a persistent atrial flutter/fibrillation, hypertension, COPD, and carotid stenosis who has well-controlled heart rate on Cardizem, and the patient is also on Eliquis. The patient has no chest pain or discomfort. There is no PND orthopnea. The patient is aware of palpitations but there is no rapid heart beat awareness. He has no symptoms of tachycardia. There is no PND orthopnea. The patient COPD is stable. The patient is on Eliquis with no bleeding and no TIA CVA symptoms. The patient is being admitted electively for chemical/electrical cardioversion of his atrial flutter/fibrillation to sinus rhythm. Unfortunately the patient did eat this morning and hence the procedure of cardioversion has been rescheduled for tomorrow at 9 AM. Past Medical History Cardiac Medical History: Reports: Atrial Fibrillation, Hyperlipidema, Hypertension Pulmonary Medical History: Reports: Chronic Obstructive Pulmonary Disease (COPD) EENT Medical History: Reports: None Neurological Medical History: Reports: Other - He has no history of TIA CVA. There is no headaches migraines or seizures. Endocrine Medical History: Reports: Other - The patient has no history of diabetes mellitus or thyroid disease. Renal/ Medical History: Reports: Other - There is no history of chronic kidney disease. Malignancy Medical History: Reports: None GI Medical History: Reports: Other - There is no history of GERD or GI bleed or peptic ulcer disease. There is Musculoskeltal Medical History: Reports: None Skin Medical History: Reports: None Psychiatric Medical History: Reports: Other - There is no history of anxiety or depression. Traumatic Medical History: Reports: None Hematology: Reports: None, Other - The patient has no blood dyscrasias ,no clotting disorders or bleeding tend Infectious Medical History: Reports: None Past Surgical History Past Surgical History: Reports: Other - He has a history of past cataract surgery in both eyes, cyst removal, and c Social History Smoking Status: Former Smoker Electronic Cigarette use?: No Cigars Per Day: 1 Number of Years Smokin Last Time Smoked: 10/23/18 Frequency of Alcohol Use: None Hx Recreational Drug Use: No Drugs: None Hx Prescription Drug Abuse: No - Advance Directive Resuscitation Status: Full Code Surrogate healthcare decision maker:: The patient's is his surrogate healthcare decision maker. Family History Family History: Other - Family history of cancer in his father, myocardial infarction in his father, and hypertension in his mother Parental Family History Reviewed: Yes Children Family History Reviewed: Yes Sibling(s) Family History Reviewed.: Yes Medication/Allergy Home Medications: Acetaminophen [Tylenol Extra Strength 500 mg Tablet] 1,000 mg PO Q4HP PRN 08/02/19 Apixaban [Eliquis 5 mg Tablet] 5 mg PO Q12 08/02/19 Budesonide/Formoterol Fumarate [Symbicort HFA 160-4.5 mcg Inhaler 6 gm] 2 puff IH BID 08/02/19 Cholecalciferol (Vitamin D3) [Vitamin D3 2000 unit Tablet] 2,000 mg PO DAILY 08/02/19 Diltiazem HCl [Cardizem Cd 180 mg Capsule] 180 mg PO BID 08/02/19 Fenofibrate Nanocrystallized [Fenofibrate] 48 mg PO QHS 08/02/19 Loratadine [Claritin 10 mg Tablet] 10 mg PO DAILY 08/02/19 Multivitamin [Multiple Vitamins] 1 tab PO DAILY 08/02/19 Simvastatin [Zocor 10 mg Tablet] 10 mg PO QHS 08/02/19 Telmisartan/Hydrochlorothiazid [Telmisartan-Hctz 80-12.5 mg Tb] 1 tab PO QAM 08/02/19 Allergies/Adverse Reactions: tree and shrub pollen Allergy (Verified 10/24/18 01:24) Review of Systems Constitutional: PRESENT: other - He denies any fever chills or Rigors. There is no generalized fatigue or weakness. Eyes: PRESENT: other - There is no amblyopia or diplopia. No amaurosis fugax. Ears: PRESENT: other - No history of hearing loss. No history of tinnitus. No history of vertigo. Nose, Mouth, and Throat: PRESENT: other - There is no history of nosebleeds or hayfever. No history of altered taste sensation. No odynophagia or dysphagia. No recurrent sore throats. Cardiovascular: PRESENT: other - There is no history of coronary artery disease. There is no history of MT. He has a history of hypertension which is well controlled, and history of persistent atrial fibrillation. He also has hyperlipidemia. Respiratory: PRESENT: other - He has a history of COPD. He is a former smoker he quit smoking October 26, 2018. No acute symptoms of exacerbation of COPD. No history of pulmonary embolism. No history of pleuritic chest pain. No hemoptysis. Gastrointestinal: PRESENT: other - No fatty food intolerance. No history of GERD or GI bleed. No history of peptic ulcer disease. No history of altered bowel movements. Genitourinary: PRESENT: other - No history of chronic kidney disease. No symptoms of enlarged prostate. No hematuria pyuria or dysuria. Musculoskeletal: PRESENT: other - No history of collagen vascular disease no acute joint pains or swellings. Range of motion in all joints is normal. Integumentary: PRESENT: other - There is no pruritus. No allergic discoloration of the skin. There is no skin lesions or skin rashes. Neurological: PRESENT: other - No history of TIA CVA. He does have a history of carotid stenosis. Asymptomatic. There is no history of headaches migraines and seizures. No history of gait imbalance. No history of syncope. No history of focal weaknesses or numbness in the extremities. Psychiatric: PRESENT: other - The patient has no history of anxiety or d epression. There is no history of suicidal ideation. No history of homicidal ideation. Endocrine: PRESENT: other - There is no polyuria or polydipsia. No history of heat or cold intolerance. No history of diabetes mellitus or thyroid disease. Physical Exam Vital Signs: Temp Pulse Resp BP Pulse Ox 98.8 F 81 16 112/58 L 94 08/02/19 12:10 08/02/19 12:10 08/02/19 12:10 08/02/19 12:10 08/02/19 12:10 General appearance: PRESENT: no acute distress, well-developed, well-nourished Head exam: PRESENT: atraumatic, normocephalic Eye exam: PRESENT: conjunctiva pink, PERRLA, other - Extraocular movements are normal. There is no conjunctival pallor. There is no scleral icterus. Ear exam: PRESENT: normal external ear exam, TM's normal bilaterally Mouth exam: PRESENT: moist, neck supple, tongue midline Teeth exam: PRESENT: other - The patient dentition is normal there is no bleeding from the gums. Throat exam: PRESENT: other - There is no redness of the oropharynx. There is no exudates in the throat. There is no tonsillar enlargement. Neck exam: PRESENT: other - Neck is supple. There is no JVD. Carotids equal there is bilateral faint bruits. There is no lymphadenopathy. There is no goiter. There is no accessory muscle respiration use. Trachea central. Respiratory exam: PRESENT: other - There is mildly diminished air entry and prolonged expiration. On percussion there is hyperresonance. There is no rhonchi rales or wheezing on auscultation. On palpation there is no chest wall tenderness. Cardiovascular exam: PRESENT: other - S1-S2 is heard. S1 is of variable intensity. There is no S3 gallop. There is no S4 gallop. There is systolic murmur left sternal border and the apex there is no rub. Pulses: PRESENT: normal carotid pulses, normal femoral pulses, +2 pedal pulses bilateral, other - There is faint bilateral carotid bruits. Neurological exam: PRESENT: alert, oriented to person, oriented to place, oriented to time, oriented to situation, reflexes normal, CN II-XII grossly intact, normal gait, other - There is no focal muscular deficits. There is no sensory deficits. Psychiatric exam: PRESENT: other - The patient judgment and insight are intact his affect is normal. Skin exam: PRESENT: other - Skin is warm. There is no petechiae or ecchymosis. There is no skin lesions or skin rashes. Results Laboratory Results: 08/02/19 10:27 08/02/19 10:27 08/02/19 08/02/19 10:27 10:27 WBC 7.6 RBC 4.33 L Hgb 13.6 Hct 40.1 MCV 93 MCH 31.5 MCHC 34.0 RDW 12.8 Plt Count 311 Seg Neutrophils % 61.6 Sodium 141.3 Potassium 4.1 Chloride 104 Carbon Dioxide 24 Anion Gap 13 BUN 15 Creatinine 0.81 Est GFR ( Amer) > 60 Glucose 109 Calcium 9.7 EKG Comments: The EKG shows atrial fibrillation/flutter with ventricular response of 97 bpm. No acute ischemia or injury pattern seen. Assessment & Plan - Diagnosis (1) Atrial fibrillation and flutter Is this a current diagnosis for this admission?: Yes Plan: Start the patient on sotalol 80 mg p.o. now and 40 mg p.o. every 12 hours. Watch the patient for proarrhythmia and QTC prolongation by serial EKGs daily. Continue Eliquis we will set the patient up for electrical cardioversion tomorrow at 9 AM with anesthesia taking care of sedation. The risks of electrical cardioversion have been discussed with the patient kiran denney. The risk of skin messer, CVA, need for CPR, defibrillation of ventricular arrhythmias if they should develop, persistent bradycardia requiring temporary or permanent pacemakers, development of aspiration pneumonia have all been discussed with the patient in detail. Informed consent has been obtained (2) For chemical/electrical cardioversion Is this a current diagnosis for this admission?: Yes Plan: As mentioned earlier the patient is for elective chemical/electrical cardioversion of atrial fibrillation to sinus mechanism. (3) COPD (chronic obstructive pulmonary disease) Qualifiers: Qualified Code(s): J44.9 - Chronic obstructive pulmonary disease, unspecified Is this a current diagnosis for this admission?: Yes Plan: This is stable we will continue the patient's Symbicort. (4) HTN (hypertension) Qualifiers: Hypertension type: essential hypertension Qualified Code(s): I10 - Essential (primary) hypertension Is this a current diagnosis for this admission?: Yes Plan: Continue patient's antihypertensive. (5) Hyperlipidemia Qualifiers: Hyperlipidemia type: unspecified Qualified Code(s): E78.5 - Hyperlipidemia, unspecified Is this a current diagnosis for this admission?: Yes Plan: Continue the patient on simvastatin and fenofibrate. - Time Anticipated discharge: Home Within: within 72 hours - Will need to be monitored the patient for at least 48 to 72 hours for proarrhythmia and QTC prolongation since the patient has been started on sotalol. - Inpatient Certification Based on my medical assessment, after consideration of the patient's comorbidities, presenting symptoms, or acuity I expect that the services needed warrant INPATIENT care.: Yes I certify that my determination is in accordance with my understanding of Medicare's requirements for reasonable and necessary INPATIENT services [42 CFR 412.3e].: Yes Medical Necessity: Need Close Monitoring Due to Risk of Patient Decompensation - Also the patient needs telemetry monitoring for early pickup of any proarrhythmic effects of sotalol, and daily EKGs for sequential QTC estimation to make sure that the QTC is not unduly prolonged on sotalol.
[2019-08-02] MEDS ORDERED: (PENDING PHARMACY ID) (Acetaminophen [Tylenol Extra Strength 500 Mg Tablet] 1,000 MG) PO PRN (14:27)
[2019-08-02] MEDS ORDERED: DEXTROSE 40% GEL 15 GM TUBE PO PRN ×2 (14:32)
[2019-08-02] MEDS ORDERED: GLUCAGON,HUMAN RECOMB 1 MG INJ SUBCUT PRN (14:32)
[2019-08-02] MEDS ORDERED: DEXTROSE 50%-WATER 25 GM/50 ML DISP.SYRIN IV PRN ×2 (14:32)
--- NOTE | 2019-08-02 14:43 | EKG REPORT ---
SEVERITY:- ABNORMAL ECG - ATRIAL FIBRILLATION PROBABLE POSTERIOR INFARCT : Confirmed by: Andrew Lopez MD 02-Aug-2019 14:42:34
[2019-08-02] MEDS ORDERED: ACETAMINOPHEN 325 MG TABLET PO PRN (16:10)
[2019-08-02] MEDS: FENOFIBRATE NANOCRYSTALLIZED 48 MG TABLET PO SCH ×2 (22:29→22:33)
[2019-08-02] MEDS: SIMVASTATIN 10 MG TABLET PO SCH (22:29)
[2019-08-02] MEDS: APIXABAN 5 MG TABLET PO SCH (22:29)
[2019-08-02] MEDS: SOTALOL HCL 80 MG TABLET PO SCH (22:29)
[2019-08-02] MEDS ORDERED: DILTIAZEM HCL/D5W 125 MG/125 ML RTUINJ IV ONE (23:38)
[2019-08-02] MEDS ORDERED: DILTIAZEM HCL/D5W 125 MG/125 ML RTUINJ IV PRN (23:53)
--- NOTE | 2019-08-03 08:08 | EKG REPORT ---
SEVERITY:- ABNORMAL ECG - A-FLUTTER W/ VARIED AV BLOCK, A-RATE 294 LEFT AXIS DEVIATION CONSIDER POSTERIOR INFARCT BORDERLINE T WAVE ABNORMALITIES : Confirmed by: Andrew Lopez MD 03-Aug-2019 08:08:08
[2019-08-03] MEDS ORDERED: SOTALOL HCL 80 MG TABLET PO ONE ×4 (08:45→19:00)
[2019-08-03] MEDS ORDERED: CHOLECALCIFEROL 2000 MG PO SCH (10:00)
[2019-08-03] MEDS ORDERED: [UNRECOGNIZED DRUG - OTHER] PO SCH (10:00)
[2019-08-03] MEDS: SOTALOL HCL 80 MG TABLET PO SCH (10:31)
[2019-08-03] MEDS: MULTIVITAMIN TABLET PO SCH (10:31)
[2019-08-03] MEDS: FENOFIBRATE NANOCRYSTALLIZED 48 MG TABLET PO SCH (10:31)
[2019-08-03] MEDS: CHOLECALCIFEROL (D3) 1,000 UNIT (25 MCG) TABLET PO SCH (10:31)
[2019-08-03] MEDS: LORATADINE 10 MG TABLET PO SCH (10:32)
[2019-08-03] MEDS: FLUTICASONE/VILANTEROL 200-25 MCG/DOSE IH SCH (10:32)
[2019-08-03] MEDS: LOSARTAN POTASSIUM 50 MG TABLET PO SCH (10:32)
[2019-08-03] MEDS: APIXABAN 5 MG TABLET PO SCH ×2 (10:32→22:17)
[2019-08-03] MEDS ORDERED: PROPOFOL INJ 200 MG/20 ML VIAL IV ONE (10:49)
--- NOTE | 2019-08-03 10:51 | Progress Note ---
Provider Note Provider Note: CARDIOLOGY PROGRESS NOTE by Dr. Moriah Cuellar on 08/03/2019. SUBJECTIVE: The patient last night had atrial fibrillation with fast ventricular response and the patient started on a Cardizem drip. The patient this morning received his sotalol earlier and subsequently the patient successfully cardioverted with anesthesia giving conscious sedation monitoring the patient's airway. The patient woke up from his cardioversion without any focal deficits and was awake alert oriented x3 and was not able to move all 4 extremities. He continues to be in sinus rhythm. An extra dose of sotalol 40 mg was given. We will continue patient on sotalol 80 mg p.o. every 12 hours. We will watch for proarrhythmia and the patient's QTC on daily EKGs. He denies any chest pain or discomfort. There is no shortness of breath. There is no PND orthopnea. There is no bleeding on Eliquis. There is no proarrhythmia on sotalol. There is no ventricular arrhythmia seen. There is no symptoms of acute exacerbation of COPD. PHYSICAL EXAMINATION: The patient is mildly obese in no acute distress. Selected Entries 08/02/19 08/02/19 10:06 12:10 Temperature 98.0 F 98.8 F Pulse Rate 111 H 81 Respiratory 16 16 Rate Blood Pressure 116/73 112/58 L Blood Pressure 87 76 Mean O2 Sat by Pulse 99 94 Oximetry Oxygen Delivery Room Air Method Subsequent to cardioversion the patient's pulse is 72 bpm regular. Blood pressure is 111/49 his respirations are 18/min. His oxygen saturation is 96% on room air. General appearance: PRESENT: no acute distress, well-developed, well-nourished Head exam: PRESENT: atraumatic, normocephalic Eye exam: PRESENT: conjunctiva pink, PERRLA, other - Extraocular movements are normal. There is no conjunctival pallor. There is no scleral icterus. Ear exam: PRESENT: normal external ear exam, TM's normal bilaterally Mouth exam: PRESENT: moist, neck supple, tongue midline Teeth exam: PRESENT: other - The patient dentition is normal there is no bleeding from the gums. Throat exam: PRESENT: other - There is no redness of the oropharynx. There is no exudates in the throat. There is no tonsillar enlargement. Neck exam: PRESENT: other - Neck is supple. There is no JVD. Carotids equal there is bilateral faint bruits. There is no lymphadenopathy. There is no goiter. There is no accessory muscle respiration use. Trachea central. Respiratory exam: PRESENT: other - There is mildly diminished air entry and prolonged expiration. On percussion there is hyperresonance. There is no rhonchi rales or wheezing on auscultation. On palpation there is no chest wall tenderness. Pulses: PRESENT: normal carotid pulses, normal femoral pulses, +2 pedal pulses bilateral, other - There is faint bilateral carotid bruits. Neurological exam: PRESENT: alert, oriented to person, oriented to place, oriented to time, oriented to situation, reflexes normal, CN II-XII grossly intact, normal gait, other - There is no focal muscular deficits. There is no sensory deficits. Psychiatric exam: PRESENT: other - The patient judgment and insight are intact his affect is normal. Skin exam: PRESENT: other - Skin is warm. There is no petechiae or ecchymosis. There is no skin lesions or skin rashes. EKG post cardioversion shows sinus rhythm. Borderline T abnormalities anterolateral leads. The patient's QTC is 415. IMPRESSION/RECOMMENDATION: 1. Paroxysmal atrial fibrillation: Patient successfully electrically cardioverted to sinus rhythm. Continue Eliquis. Continue sotalol. 2. Hypertension: Blood pressure well controlled. 3. COPD: Stable and at baseline without exacerbation. 4. Hyperlipidemia. Medications reviewed medical regimen and management plan discussed with the patient. Medical decision making is of moderate complexity. 40 minutes spent on this patient with more than 50% of time spent in direct patient care. The patient continues to need inpatient monitoring of his heart rhythm in view of the patient being on sotalol. Hopefully will discharge the patient on Sunday since recommended observation. On sotalol is 48 to 72 hours. This has been discussed with the patient.
--- NOTE | 2019-08-03 10:55 | Progress Note ---
Provider Note Provider Note: BEDSIDE PROCEDURE by Dr. Moriah Cuellar. Date Of Procedure: 08/03/2019. PROCEDURE: Elective electrical cardioversion of atrial fibrillation to sinus rhythm. This was successfully done. Tissue removed: None Blood loss, none Procedure. With anesthesia giving the patient deep sort conscious sedation and monitoring the patient's airway pacer pads were already placed in the front and back of the patient's chest. The patient was fully sedated 200 J of biphasic synchronized cardioversion was performed the patient successfully was converted to sinus rhythm. Postprocedure the patient was awake alert oriented x3 with no evidence of any stroke or CVA. There was no skin messer. There is no bradycardia or undue pauses or ventricular arrhythmias or cardiac stent Impression: SUCCESSFUL CARDIOVERSION OF ATRIAL FIBRILLATION to SINUS RHYTHM. 10 minutes spent on the procedure.
--- NOTE | 2019-08-03 16:37 | EKG REPORT ---
SEVERITY:- BORDERLINE ECG - SINUS RHYTHM BORDERLINE T ABNORMALITIES, ANT-LAT LEADS : Confirmed by: Andrew Lopez MD 03-Aug-2019 16:36:41
[2019-08-03] MEDS ORDERED: DEXTROSE 5%-WATER 1000 ML 1,000 ML with SODIUM BICARBONATE 150 MEQ IV PRN ×2 (16:41)
--- NOTE | 2019-08-03 21:38 | EKG REPORT ---
SEVERITY:- ABNORMAL ECG - ATRIAL FLUTTER, A-RATE 283 MULTIFORM VENTRICULAR PREMATURE COMPLEXES IVCD, CONSIDER ATYPICAL RBBB : Confirmed by: Andrew Lopez MD 03-Aug-2019 21:37:42
[2019-08-03] MEDS: DILTIAZEM HCL 30 MG TABLET PO SCH (22:16)
[2019-08-03] MEDS: SIMVASTATIN 10 MG TABLET PO SCH (22:17)
[2019-08-04] MEDS: DILTIAZEM HCL 30 MG TABLET PO SCH ×4 (05:59→21:12)
--- NOTE | 2019-08-04 06:23 | EKG REPORT ---
SEVERITY:- ABNORMAL ECG - ATRIAL FLUTTER/FIBRILLATION, A-RATE 278 IVCD, CONSIDER ATYPICAL RBBB : Confirmed by: Andrew Lopez MD 04-Aug-2019 06:22:33
[2019-08-04] MEDS: CHOLECALCIFEROL (D3) 1,000 UNIT (25 MCG) TABLET PO SCH (09:03)
[2019-08-04] MEDS: SOTALOL HCL 80 MG TABLET PO SCH (09:03)
[2019-08-04] MEDS: MULTIVITAMIN TABLET PO SCH (09:04)
[2019-08-04] MEDS: FLUTICASONE/VILANTEROL 200-25 MCG/DOSE IH SCH (09:04)
[2019-08-04] MEDS: FENOFIBRATE NANOCRYSTALLIZED 48 MG TABLET PO SCH (09:04)
[2019-08-04] MEDS: APIXABAN 5 MG TABLET PO SCH ×2 (09:04→21:13)
[2019-08-04] MEDS: LORATADINE 10 MG TABLET PO SCH (09:04)
[2019-08-04] MEDS: LOSARTAN POTASSIUM 50 MG TABLET PO SCH (09:04)
[2019-08-04] MEDS ORDERED: PROPOFOL INJ 200 MG/20 ML VIAL IV ONE (17:12)
[2019-08-04] MEDS ORDERED: SOTALOL HCL 80 MG TABLET PO ONE (19:00)
[2019-08-04] MEDS: SIMVASTATIN 10 MG TABLET PO SCH (21:12)
--- NOTE | 2019-08-04 21:55 | Progress Note ---
Provider Note Provider Note: CARDIOLOGY PROGRESS NOTE by Dr. Moriah Cuellar on 08/04/2019. SUBJECTIVE: The patient yesterday was successfully converted to sinus rhythm by electrical cardioversion. The patient a few hours later went back into atrial fibrillation. The patient denies any chest pain or discomfort. There is no shortness of breath there is no PND orthopnea or leg edema. There is no bleeding on Eliquis. There is no TIA CVA symptoms. There is no proarrhythmia on sotalol. The patient's sotalol has been increased to 160 mg p.o. every 12 hours and a second attempt at cardioversion is being planned for this evening around 5 PM the risks and benefits of cardioversion and the complications of all been discussed again in detail. PHYSICAL EXAMINATION: The patient is mildly obese in no acute distress Selected Entries 08/04/19 12:27 Temperature 98.1 F Temperature Oral Source Pulse Rate 103 H Respiratory 18 Rate Blood Pressure 112/38 L Blood Pressure 62 Mean BP Location Left Arm BP Position Sitting O2 Sat by Pulse 99 Oximetry Oxygen Delivery Room Air Method General appearance: PRESENT: no acute distress, well-developed, well-nourished Head exam: PRESENT: atraumatic, normocephalic Eye exam: PRESENT: conjunctiva pink, PERRLA, other - Extraocular movements are normal. There is no conjunctival pallor. There is no scleral icterus. Ear exam: PRESENT: normal external ear exam, TM's normal bilaterally Mouth exam: PRESENT: moist, neck supple, tongue midline Teeth exam: PRESENT: other - The patient dentition is normal there is no bleeding from the gums. Throat exam: PRESENT: other - There is no redness of the oropharynx. There is no exudates in the throat. There is no tonsillar enlargement. Neck exam: PRESENT: other - Neck is supple. There is no JVD. Carotids equal there is bilateral faint bruits. There is no lymphadenopathy. There is no goiter. There is no accessory muscle respiration use. Trachea central. Respiratory exam: PRESENT: other - There is mildly diminished air entry and prolonged expiration. On percussion there is hyperresonance. There is no rhonchi rales or wheezing on auscultation. On palpation there is no chest wall tenderness. Pulses: PRESENT: normal carotid pulses, normal femoral pulses, +2 pedal pulses bilateral, other - There is faint bilateral carotid bruits. Neurological exam: PRESENT: alert, oriented to person, oriented to place, oriented to time, oriented to situation, reflexes normal, CN II-XII grossly intact, normal gait, other - There is no focal muscular deficits. There is no sensory deficits. Psychiatric exam: PRESENT: other - The patient judgment and insight are intact his affect is normal. Skin exam: PRESENT: other - Skin is warm. There is no petechiae or ecchymosis. There is no skin lesions or skin rashes. The patient's EKG prior to cardioversion: Atrial fibrillation with rapid ventricular response in the rate of 103 bpm. Incomplete right bundle branch block pattern. EKG post cardioversion shows sinus rhythm. Wandering atrial pacemaker versus chaotic atrial mechanism. QTC is 437. IMPRESSION/RECOMMENDATION: 1. Paroxysmal atrial fibrillation: Patient successfully electrically cardioverted to sinus rhythm yesterday, but went back into atrial fibrillation later that evening. The patient's sotalol has been increased to 160 mill grams p.o. every 12 hours. Repeat electrical cardioversion has been planned for this evening. Continue Eliquis. Continue sotalol. 2. Hypertension: Blood pressure well controlled. 3. COPD: Stable and at baseline without exacerbation. 4. Hyperlipidemia. Medications reviewed. Medical regimen and management plan discussed with the patient. Medical decision making is of high complexity in view of the need for repeat cardioversion. 40 minutes spent on this patient with more than 50% time spent in direct patient care. Will follow anesthesia has been consulted and discussed with them for deep conscious sedation for repeat cardioversion this evening. Will follow.
--- NOTE | 2019-08-04 21:55 | Progress Note ---
Provider Note Provider Note: BEDSIDE PROCEDURE by Dr. Moriah Cuellar. Date Of Procedure: 08/04/2019. The patient yesterday was successfully cardioverted a few hours later the patient reverted back to atrial fibrillation. His sotalol was increased to 160 mg p.o. every 12 hours, and today is his repeat attempt at cardioversion after informed consent from the patient was obtained. Note informed consent details in the history and physical. PROCEDURE: Elective electrical cardioversion of atrial fibrillation to sinus rhythm. This was successfully done. Tissue removed: None Blood loss, none Procedure. With anesthesia giving the patient deep sort conscious sedation and monitoring the patient's airway pacer pads were already placed in the front and back of the patient's chest. The patient was fully sedated 200 J of biphasic synchronized cardioversion was performed the patient successfully was converted to sinus rhythm. Postprocedure the patient was awake alert oriented x3 with no evidence of any stroke or CVA. There was no skin messer. There is no bradycardia or undue pauses or ventricular arrhythmias or cardiac stent Impression: SUCCESSFUL CARDIOVERSION OF ATRIAL FIBRILLATION to SINUS RHYTHM. 10 minutes spent on the procedure.
[2019-08-05] MEDS: DILTIAZEM HCL 30 MG TABLET PO SCH (05:24)
[2019-08-05 07:17] LABS: ALBUMIN 4.5 g/dL (3.5-5.0); ALKALINE PHOSPHATASE 46 U/L (38-126); ANION GAP 13 (5-19); ASPARTATE AMINO TRANSFERASE 36 U/L (17-59); BILIRUBIN,DIRECT 0.2 mg/dL (0.0-0.4); BILIRUBIN,TOTAL 0.7 mg/dL (0.2-1.3); BLOOD UREA NITROGEN 16 mg/dL (7-20); CALCIUM 9.4 mg/dL (8.4-10.2); CARBON DIOXIDE 23 mmol/L (22-30); CHLORIDE 104 mmol/L (98-107); CHOLESTEROL 170.41 mg/dL (0-200); GLUCOSE 94 mg/dL (75-110); POTASSIUM 4.6 mmol/L (3.6-5.0); TOTAL PROTEIN 7.5 g/dL (6.3-8.2); TRIGLYCERIDES 237 mg/dL (<150)
[2019-08-05 07:29] LABS: DIRECT LDL 124 mg/dL (<100)
[2019-08-05 07:34] LABS: VLDL CHOLESTEROL 47.4 mg/dL (10-31)
[2019-08-05 07:58] LABS: FREE T3 4.35 pg/mL (2.77-5.27); FREE T4 (FREE THYROXINE) 1.19 ng/dL (0.78-2.19)
[2019-08-05 08:12] LABS: THYROID STIMULATING HORMONE 2.12 uIU/mL (0.47-4.68)
[2019-08-05] MEDS: FLUTICASONE/VILANTEROL 200-25 MCG/DOSE IH SCH (09:13)
[2019-08-05] MEDS: MULTIVITAMIN TABLET PO SCH (09:15)
[2019-08-05] MEDS: LOSARTAN POTASSIUM 50 MG TABLET PO SCH (09:15)
[2019-08-05] MEDS: APIXABAN 5 MG TABLET PO SCH (09:15)
[2019-08-05] MEDS: LORATADINE 10 MG TABLET PO SCH (09:16)
[2019-08-05] MEDS: FENOFIBRATE NANOCRYSTALLIZED 48 MG TABLET PO SCH (09:16)
[2019-08-05] MEDS: CHOLECALCIFEROL (D3) 1,000 UNIT (25 MCG) TABLET PO SCH (09:16)
--- NOTE | 2019-08-05 09:40 | EKG REPORT ---
SEVERITY:- BORDERLINE ECG - SINUS RHYTHM PROBABLE LEFT ATRIAL ABNORMALITY : Confirmed by: Johann Ramirez 05-Aug-2019 09:38:17
--- NOTE | 2019-08-05 09:40 | EKG REPORT ---
SEVERITY:- ABNORMAL ECG - SINUS RHYTHM MULTIPLE ATRIAL PREMATURE COMPLEXES : Confirmed by: Johann Ramirez 05-Aug-2019 09:38:09
[2019-08-05] MEDS: SOTALOL HCL 80 MG TABLET PO SCH ×2 (10:59→12:32)
--- NOTE | 2019-08-05 12:14 | Progress Note ---
Provider Note Provider Note: CARDIOLOGY PROGRESS NOTES by Dr. Moriah Cuellar on 08/05/2019. SUBJECTIVE: The patient remains in sinus rhythm. He has no chest pain or discomfort. There is no shortness of breath. There is no PND orthopnea. There is no proarrhythmia on current dose of sotalol. There is no bleeding on Eliquis. There is no TIA CVA symptoms. PHYSICAL EXAMINATION: The patient is mildly obese. In no acute distress. Selected Entries 08/04/19 20:01 Temperature 97.7 F Temperature Oral Source Pulse Rate 77 Respiratory 22 H Rate Blood Pressure 121/56 L Blood Pressure 77 Mean BP Location Left Arm BP Position Supine O2 Sat by Pulse 99 Oximetry Oxygen Delivery Room Air Method General appearance: PRESENT: no acute distress, well-developed, well-nourished Head exam: PRESENT: atraumatic, normocephalic Eye exam: PRESENT: conjunctiva pink, PERRLA, other - Extraocular movements are normal. There is no conjunctival pallor. There is no scleral icterus. Ear exam: PRESENT: normal external ear exam, TM's normal bilaterally Mouth exam: PRESENT: moist, neck supple, tongue midline Teeth exam: PRESENT: other - The patient dentition is normal there is no bleeding from the gums. Throat exam: PRESENT: other - There is no redness of the oropharynx. There is no exudates in the throat. There is no tonsillar enlargement. Neck exam: PRESENT: other - Neck is supple. There is no JVD. Carotids equal there is bilateral faint bruits. There is no lymphadenopathy. There is no goiter. There is no accessory muscle respiration use. Trachea central. Respiratory exam: PRESENT: other - There is mildly diminished air entry and prolonged expiration. On percussion there is hyperresonance. There is no rhonchi rales or wheezing on auscultation. On palpation there is no chest wall tenderness. Pulses: PRESENT: normal carotid pulses, normal femoral pulses, +2 pedal pulses bilateral, other - There is faint bilateral carotid bruits. Neurological exam: PRESENT: alert, oriented to person, oriented to place, oriented to time, oriented to situation, reflexes normal, CN II-XII grossly intact, normal gait, other - There is no focal muscular deficits. There is no sensory deficits. Psychiatric exam: PRESENT: other - The patient judgment and insight are intact his affect is normal. Skin exam: PRESENT: other - Skin is warm. There is no petechiae or ecchymosis. There is no skin lesions or skin rashes. The patient's EKG of today shows sinus rhythm with multiple PACs, versus. Chaotic atrial mechanism. QTC is 421. Abnormal - 24 hr 08/05/19 06:38 Triglycerides 237 H LDL Cholesterol Direct 124 H VLDL Cholesterol 47.4 H HDL Cholesterol 29 L IMPRESSION/RECOMMENDATION: 1. Paroxysmal atrial fibrillation: Patient successfully electrically ca rdioverted to sinus rhythm yesterday, but went back into atrial fibrillation later that evening. The patient's sotalol has been increased to 160 mill grams p.o. every 12 hours. Repeat electrical cardioversion has been planned for this evening. Continue Eliquis. Continue sotalol. 2. Hypertension: Blood pressure well controlled. 3. COPD: Stable and at baseline without exacerbation. 4. Hyperlipidemia. Medications reviewed. Medical regimen and management plan discussed with the patient. Medical decision making is of moderate complexity. Patient stable will discharge the patient follow the patient at home please see discharge summary.
--- NOTE | 2019-08-05 12:36 | PDOC DISCHARGE SUMMARY ---
Impression - Admit/DC Date/PCP Admission Date/Primary Care Provider: 08/02/19 13:56 LENKA STOKES Discharge Date: 08/05/19 - Discharge Diagnosis (1) Atrial fibrillation and flutter Is this a current diagnosis for this admission?: No (2) For chemical/electrical cardioversion Is this a current diagnosis for this admission?: No (3) COPD (chronic obstructive pulmonary disease) Is this a current diagnosis for this admission?: Yes (4) HTN (hypertension) Is this a current diagnosis for this admission?: Yes (5) Hyperlipidemia Is this a current diagnosis for this admission?: Yes (6) Paroxysmal atrial fibrillation Is this a current diagnosis for this admission?: Yes (7) S/P cardioversion to Sinus Rhythm Is this a current diagnosis for this admission?: Yes - Additional Information Resuscitation Status: Full Code Discharge Diet: Cardiac Discharge Activity: Activity As Tolerated Referrals: LENKA STOKES MD [Primary Care Provider] - AUNG HERNANDEZ MD [ACTIVE STAFF] - Prescriptions: Sotalol HCl [Betapace 80 mg Tablet] 160 mg PO Q12 30 Days #60 tablet Losartan Potassium [Cozaar 50 mg Tablet] 50 mg PO DAILY 90 Days #90 tablet Home Medications: Apixaban [Eliquis 5 mg Tablet] 5 mg PO Q12 08/02/19 Budesonide/Formoterol Fumarate [Symbicort HFA 160-4.5 mcg Inhaler 6 gm] 2 puff IH BID 08/02/19 Cholecalciferol (Vitamin D3) [Vitamin D3 2000 unit Tablet] 2,000 mg PO DAILY 08/02/19 Diltiazem HCl [Cardizem Cd 180 mg Capsule] 180 mg PO BID 08/02/19 Fenofibrate Nanocrystallized [Fenofibrate] 48 mg PO QHS 08/02/19 Loratadine [Claritin 10 mg Tablet] 10 mg PO DAILY 08/02/19 Multivitamin [Multiple Vitamins] 1 tab PO DAILY 08/02/19 Simvastatin [Zocor 10 mg Tablet] 10 mg PO QHS 08/02/19 Telmisartan/Hydrochlorothiazid [Telmisartan-Hctz 80-12.5 mg Tb] 1 tab PO QAM 08/02/19 Apixaban [Eliquis 5 mg Tablet] 5 mg PO Q12 tablet 08/05/19 Fluticasone/Vilanterol [Breo 200-25 Mcg Ellipta 14 Dose/Dpi] 1 inh IH DAILY inhaler 08/05/19 Losartan Potassium [Cozaar 50 mg Tablet] 50 mg PO DAILY 90 Days #90 tablet 08/05/19 Multivitamin [Tab-A-Jenni (Multiple Vitamin) Tablet] 1 tab PO DAILY tablet 08/05/19 Sotalol HCl [Betapace 80 mg Tablet] 160 mg PO Q12 30 Days #60 tablet 08/05/19 History of Present Illiness History of Present Illness: ZEB RODRIGUEZ is a 64 year old male Patient is a 64-year-old male with known history of with a history of a persistent atrial flutter/fibrillation, hypertension, COPD, and carotid stenosis who has well-controlled heart rate on Cardizem, and the patient is also on Eliquis. The patient has no chest pain or discomfort. There is no PND orthopnea. The patient is aware of palpitations but there is no rapid heart beat awareness. He has no symptoms of tachycardia. There is no PND orthopnea. The patient COPD is stable. The patient is on Eliquis with no bleeding and no TIA CVA symptoms. The patient is being admitted electively for chemical/electrical cardioversion of his atrial flutter/fibrillation to sinus rhythm. Unfortunately the patient did eat this morning and hence the procedure of cardioversion has been rescheduled for tomorrow at 9 AM. Hospital Course Hospital Course: The patient was admitted and placed on sotalol, which he tolerated. He continued to be in atrial fibrillation. Subsequently on 08/03/2019 the patient with anesthesia giving conscious sedation the patient successfully cardioverted to sinus mechanism. Unfortunately the patient reverted back into atrial fibrillation in a few minutes. His sotalol was increased to 160 mg p.o. twice daily and subsequently a repeat cardioversion was successfully performed on 08/04/2019. The patient has remained in sinus rhythm since then. The patient did ambulate and the patient had no chest pain or discomfort and the patient will be discharged home on Eliquis. There is no complication from the cardioversion. Physical Exam Vital Signs: Temp Pulse Resp BP Pulse Ox 98.0 F 57 L 18 105/47 L 99 08/05/19 07:58 08/05/19 07:58 08/05/19 07:58 08/05/19 07:58 08/05/19 07:58 Intake & Output 08/04/19 08/05/19 08/06/19 06:59 06:59 06:59 Intake Total 655 912 Balance 655 912 Weight 89.4 kg 89.6 kg General appearance: PRESENT: no acute distress, well-developed, well-nourished Head exam: PRESENT: atraumatic, normocephalic Eye exam: PRESENT: conjunctiva pink, PERRLA Ear exam: PRESENT: normal external ear exam, TM's normal bilaterally, other - There is no scleral icterus. There is no conjunctival pallor. Extraocular movements are normal. Mouth exam: PRESENT: moist, neck supple, tongue midline Teeth exam: PRESENT: other - There is no bleeding from the gums. There is no ulcers in the mouth. Throat exam: PRESENT: other - There is no redness of the oropharynx. There is no exudates. Neck exam: PRESENT: other - Neck is supple. There is no goiter. There is no ly mphadenopathy. There is no accessory muscle respiration use. Carotids equal without any bruits. Trachea central Respiratory exam: PRESENT: other - There is mildly diminished air entry and prolonged expiration. There is no rhonchi rales or wheezing. On percussion there is hyperresonance. Cardiovascular exam: PRESENT: other - S1-S2 is heard. S1 is of normal intensity. There is systolic murmur left sternal border and the apex. There is no rub. Pulses: PRESENT: normal femoral pulses, +2 pedal pulses bilateral Vascular exam: PRESENT: normal capillary refill GI/Abdominal exam: PRESENT: other - Is soft. There is no hepatosplenomegaly. Bowel sounds are well heard. Rectal exam: PRESENT: deferred Extremities exam: PRESENT: other - There is no DVT or cellulitis. There is no pedal edema. There is no cyanosis or clubbing. Neurological exam: PRESENT: other - The patient is conscious awake alert oriented times with no focal deficits. Psychiatric exam: PRESENT: other - The patient judgment insight are intact his affect is normal. Skin exam: PRESENT: warm, other - There is no petechia or ecchymosis. There is no skin lesions or skin rashes. Results Laboratory Results: WBC 7.6 10^3/uL (4.0-10.5) 08/02/19 10:27 RBC 4.33 10^6/uL (4.35-5.55) L 08/02/19 10:27 Hgb 13.6 g/dL (13.5-17.0) 08/02/19 10:27 Hct 40.1 % (37.9-51.0) 08/02/19 10:27 MCV 93 fl (80-97) 08/02/19 10:27 MCH 31.5 pg (27.0-33.4) 08/02/19 10:27 MCHC 34.0 g/dL (32.0-36.0) 08/02/19 10:27 RDW 12.8 % (11.5-14.0) 08/02/19 10:27 Plt Count 311 10^3/uL (150-450) 08/02/19 10:27 Lymph % (Auto) 22.1 % (13-45) 08/02/19 10:27 Morrison % (Auto) 9.6 % (3-13) 08/02/19 10:27 Eos % (Auto) 5.4 % (0-6) 08/02/19 10:27 Baso % (Auto) 1.3 % (0-2) 08/02/19 10:27 Absolute Neuts (auto) 4.7 10^3/uL (1.7-8.2) 08/02/19 10:27 Absolute Lymphs (auto) 1.7 10^3/uL (0.5-4.7) 08/02/19 10:27 Absolute Monos (auto) 0.7 10^3/uL (0.1-1.4) 08/02/19 10:27 Absolute Eos (auto) 0.4 10^3/uL (0.0-0.6) 08/02/19 10:27 Absolute Basos (auto) 0.1 10^3/uL (0.0-0.2) 08/02/19 10:27 Seg Neutrophils % 61.6 % (42-78) 08/02/19 10:27 Sodium 139.9 mmol/L (137-145) 08/05/19 06:38 Potassium 4.6 mmol/L (3.6-5.0) 08/05/19 06:38 Chloride 104 mmol/L (98-107) 08/05/19 06:38 Carbon Dioxide 23 mmol/L (22-30) 08/05/19 06:38 Anion Gap 13 (5-19) 08/05/19 06:38 BUN 16 mg/dL (7-20) 08/05/19 06:38 Creatinine 0.89 mg/dL (0.52-1.25) 08/05/19 06:38 Est GFR ( Amer) > 60 (>60) 08/05/19 06:38 Est GFR (MDRD) Non-Af > 60 (>60) 08/05/19 06:38 Glucose 94 mg/dL (75-110) 08/05/19 06:38 Calcium 9.4 mg/dL (8.4-10.2) 08/05/19 06:38 Total Bilirubin 0.7 mg/dL (0.2-1.3) 08/05/19 06:38 Direct Bilirubin 0.2 mg/dL (0.0-0.4) 08/05/19 06:38 Neonat Total Bilirubin Not Reportable 08/05/19 06:38 Neonat Direct Bilirubin Not Reportable 08/05/19 06:38 Neonat Indirect Bili Not Reportable 08/05/19 06:38 AST 36 U/L (17-59) 08/05/19 06:38 ALT 42 U/L (<50) 08/05/19 06:38 Alkaline Phosphatase 46 U/L (38-126) 08/05/19 06:38 Total Protein 7.5 g/dL (6.3-8.2) 08/05/19 06:38 Albumin 4.5 g/dL (3.5-5.0) 08/05/19 06:38 Triglycerides 237 mg/dL (<150) H 08/05/19 06:38 Cholesterol 170.41 mg/dL (0-200) 08/05/19 06:38 LDL Cholesterol Direct 124 mg/dL (<100) H 08/05/19 06:38 VLDL Cholesterol 47.4 mg/dL (10-31) H 08/05/19 06:38 HDL Cholesterol 29 mg/dL (>40) L 08/05/19 06:38 TSH 2.12 uIU/mL (0.47-4.68) 08/05/19 06:38 Free T4 1.19 ng/dL (0.78-2.19) 08/05/19 06:38 Free T3 pg/mL 4.35 pg/mL (2.77-5.27) 08/05/19 06:38 Stroke Is this a Stroke Patient?: No Acute Heart Failure - Is this a Heart Failure Patient?: No Documentation of LVEF assessment?: Yes - The patient had an echo earlier in the office with normal LV ejection fraction. LVEF < 40%?: No- if no continue to question #3 3. Anticoagulant therapy for permanect/persistent/paraoxysmal Afib or Aflutter: Yes - Patient is on Eliquis 5 mg p.o. twice daily as per guidelines.
[2019-08-05 13:24] VITALS: BP 91/42
== END 2019-08-05 13:35 | disposition home or self-care (01) | DRG 310 ==
LOC: 3W 08:47 → OBSVTOIN 13:56
PROVIDERS: ADMIT Specialist; ATTEND Specialist
PROC: 5A2204Z Restoration of Cardiac Rhythm, Single (ICD-10-PCS; principal; 2019-08-03)
PROC: 5A2204Z Restoration of Cardiac Rhythm, Single (ICD-10-PCS; 2019-08-04)
DX: I48.0 Paroxysmal atrial fibrillation (principal); E66.9 Obesity, unspecified; I48.92 Unspecified atrial flutter; J44.9 Chronic obstructive pulmonary disease, unspecified; I10 Essential (primary) hypertension; E78.5 Hyperlipidemia, unspecified; I65.29 Occlusion and stenosis of unspecified carotid artery; Z79.01 Long term (current) use of anticoagulants; Z87.891 Personal history of nicotine dependence; Z82.49 Family history of ischemic heart disease and other diseases of the circulatory system; Z91.048 Other nonmedicinal substance allergy status
CPT/HCPCS: 36415; 410; 80048; 80061; 80076; 84439; 84443; 84481; 85025; 93005; 93010; J2704; J3490